=== PATIENT | male | born 1955 | race Caucasian/White ===

== ENCOUNTER 2018-03-04 00:23 | Inpatient (IN) | payer BC ==
[~2018-03-04] VITALS: Ht 180.3 cm; Wt 108.4 kg
[2018-03-04 00:53] LABS: BASOPHILS % (AUTO) 0 % (0-1); EOSINOPHILS # (AUTO) 0.1 X10'3 (0-0.9); HEMATOCRIT 42.6 % (42.0-52.0); HEMOGLOBIN 14.7 g/dl (14.0-17.9); LYMPHOCYTES # (AUTO) 0.9 X10'3 (1.1-4.8); LYMPHOCYTES % (AUTO) 8.2 % (21-51); MEAN CORPUSCULAR HEMOGLOBIN 30.6 PG (27.0-31.0); MEAN CORPUSCULAR HGB CONC 34.6 % (33.0-36.5); MEAN CORPUSCULAR VOLUME 88.6 FL (78-98); MEAN PLATELET VOLUME 7.7 FL (7.4-10.4); MONOCYTES # (AUTO) 1.4 X10'3 (0-0.9); MONOCYTES % (AUTO) 12.8 % (2-12); NEUTROPHILS # (AUTO) 8.5 X10'3 (1.8-7.7); PLATELET COUNT 274 X10'3 (140-440); RED BLOOD COUNT 4.81 X10'6 (4.70-6.10); RED CELL DISTRIBUTION WIDTH 13.7 % (11.5-14.5); WHITE BLOOD COUNT 10.9 X10'3 (4.5-11.0)
[2018-03-04 01:03] LABS: CLARITY,URINE CLEAR (Clear); COLOR,URINE YELLOW (Yellow); GLUCOSE, URINE NEGATIVE (Neg); KETONES,URINE >=80 mg/dl (Neg); LEUKOCYTE ESTERASE ,URINE NEGATIVE (Neg); NITRITES, URINE NEGATIVE (Neg); OCCULT BLOOD,URINE NEGATIVE (Neg); PROTEIN,URINE NEGATIVE (Neg); UROBILINOGEN,URINE 0.2 E.U/dL (0.2-1.0)
[2018-03-04 01:04] LABS: PROTHROMBIN TIME 10.5 SECONDS (9.0-12.0)
[2018-03-04 01:07] LABS: ALANINE AMINOTRANSFERASE 24 U/L (12-78); ALBUMIN 3.7 G/DL (3.4-5.0); ALBUMIN/GLOBULIN RATIO 1.1 (1.1-1.5); ALKALINE PHOSPHATASE 59 IU/L (46-116); ANION GAP 10 (8-16); ASPARTATE AMINO TRANSFERASE 17 U/L (10-37); BILIRUBIN,TOTAL 0.8 MG/DL (0.1-1.0); BLOOD UREA NITROGEN 19 MG/DL (7-18); BUN/CREATININE RATIO 22.9 (5.4-32.0); CALCIUM 9.1 MG/DL (8.5-10.1); CHLORIDE 102 MMOL/L (99-107); CREATININE 0.83 MG/DL (0.60-1.10); GLUCOSE 126 MG/DL (70-104); POTASSIUM 3.8 MMOL/L (3.5-5.1); SODIUM 139 MMOL/L (135-145); TOTAL CARBON DIOXIDE 27.1 MMOL/L (24-32); TOTAL PROTEIN 7.2 G/DL (6.4-8.2); eGFR > 90 ML/MIN
[2018-03-04 01:09] LABS: UA COLLECTION TYPE CLN CATCH MIDSTREAM
[2018-03-04] MEDS ORDERED: LORazepam 2 mg/ml vial IV ONE (02:10)
[2018-03-04] MEDS ORDERED: diphenhydrAMINE 50 mg/ml inj IV ONE (02:10)
[2018-03-04] MEDS ORDERED: glycopyrrolate 0.2mg/ml inj IV ONE (02:10)
[2018-03-04] MEDS ORDERED: metoclopramide 5 mg/ml inj IV ONE (02:10)
[2018-03-04] MEDS ORDERED: normal saline 1000ML IV soln IVB ONE ×2 (02:10)
[2018-03-04] MEDS ORDERED: CefTRIAXone 2gm/D5W 50ml 50 ML IV ONE (02:30)
[2018-03-04] MEDS ORDERED: ONDA4TAB12 PO (02:49)
[2018-03-04] MEDS ORDERED: CIPR-230 PO (02:49)
[2018-03-04] MEDS ORDERED: HYDR-3965 PO (02:49)
[2018-03-04] MEDS ORDERED: METR500T4 PO (02:49)
[2018-03-04] MEDS ORDERED: morphine 4 MG/ML inj SYRINge IV PRN (04:35)
[2018-03-04] MEDS ORDERED: ondansetron/PF 4mg/2ml inj IV PRN (04:35)
[2018-03-04] MEDS ORDERED: acetaminophen 325mg tablet PO PRN (04:35)
[2018-03-04] MEDS ORDERED: potassium Cl 20 mEq SR tablet PO PRN ×2 (04:35)
[2018-03-04] MEDS ORDERED: potassium Cl 40MEQ/NS 500ml 500 ML IV PRN ×2 (04:35)
[2018-03-04] MEDS: normal saline 1000ml 1,000 ML IV SCH ×2 (05:30→18:01)
[2018-03-04] MEDS: piperacillin/tazo 3.375gm/50ml 50 ML IV SCH ×3 (05:30→20:43)
[2018-03-04 08:46] LABS: MAGNESIUM 1.9 MG/DL (1.5-2.4)
[2018-03-04] MEDS ORDERED: NO HOME MEDS (08:48)
[2018-03-04] MEDS: K and/or MAG REPLACEMENT MC SCH (08:56)
[2018-03-04 20:15] VITALS: BP 145/75
[2018-03-05] VITALS: BP 141/71
[2018-03-05] MEDS: piperacillin/tazo 3.375gm/50ml 50 ML IV SCH ×3 (01:52→13:17)
[2018-03-05] MEDS: normal saline 1000ml 1,000 ML IV SCH (01:53)
[2018-03-05 03:30] VITALS: BP 145/75
[2018-03-05 05:09] LABS: ALBUMIN 2.8 G/DL (3.4-5.0); ANION GAP 6 (8-16); BLOOD UREA NITROGEN 12 MG/DL (7-18); BUN/CREATININE RATIO 15.2 (5.4-32.0); CALCIUM 8.3 MG/DL (8.5-10.1); CHLORIDE 107 MMOL/L (99-107); CREATININE 0.79 MG/DL (0.60-1.10); GLUCOSE 100 MG/DL (70-104); POTASSIUM 3.5 MMOL/L (3.5-5.1); SODIUM 143 MMOL/L (135-145); TOTAL CARBON DIOXIDE 29.7 MMOL/L (24-32); eGFR > 90 ML/MIN
[2018-03-05 05:21] LABS: BASOPHILS % (AUTO) 0.3 % (0-1); EOSINOPHILS # (AUTO) 0.1 X10'3 (0-0.9); EOSINOPHILS % (AUTO) 1.6 % (0-6); LYMPHOCYTES # (AUTO) 1.2 X10'3 (1.1-4.8); LYMPHOCYTES % (AUTO) 15.8 % (21-51); MEAN CORPUSCULAR HEMOGLOBIN 30.8 PG (27.0-31.0); MEAN CORPUSCULAR HGB CONC 35.1 % (33.0-36.5); MEAN CORPUSCULAR VOLUME 87.9 FL (78-98); MONOCYTES # (AUTO) 0.9 X10'3 (0-0.9); MONOCYTES % (AUTO) 11.7 % (2-12); NEUTROPHILS # (AUTO) 5.2 X10'3 (1.8-7.7); NEUTROPHILS % (AUTO) 70.6 % (42-75); PLATELET COUNT 222 X10'3 (140-440); RED BLOOD COUNT 4.21 X10'6 (4.70-6.10); RED CELL DISTRIBUTION WIDTH 13.3 % (11.5-14.5); WHITE BLOOD COUNT 7.4 X10'3 (4.5-11.0)
[2018-03-05 07:35] VITALS: BP 134/76
[2018-03-05] MEDS: K and/or MAG REPLACEMENT MC SCH (08:00)
[2018-03-05 11:38] VITALS: BP 139/64
[2018-03-05] MEDS ORDERED: METR500T PO (12:04)
[2018-03-05] MEDS ORDERED: LEVO750T46 PO (12:04)
[2018-03-05] MEDS ORDERED: lactobacillus rhamnosus 10,000 MMU CELLS/CAPSULE PO SCH (20:00)
== END 2018-03-05 15:17 | disposition home or self-care (01) | DRG 392 ==
LOC: ER 00:24 → ED HOLD 04:31 → CMPBEDREQ 19:36 → SUR 3N 20:10
PROVIDERS: ADMIT Family Medicine; ATTEND Family Medicine
PROC: 0H91XZZ Drainage of Face Skin, External Approach (ICD-10-PCS; principal; 2018-03-04)
DX: K57.20 Diverticulitis of large intestine with perforation and abscess without bleeding (principal); L03.211 Cellulitis of face; Z79.899 Other long term (current) drug therapy; Z82.3 Family history of stroke
CPT/HCPCS: 36415; 74176; 80048; 80053; 81003; 83735; 85025; 85610; 87040; 87070; J0696; J1200; J2060; J2543; J2765; J3490; J7030